=== PATIENT | female | born 1940 | race African-American/Black ===

== ENCOUNTER 2021-07-02 10:20 | Inpatient (IN) | payer BC, MEDICAID ==
[~2021-07-02] VITALS: Ht 165.1 cm; Wt 69.1 kg
[2021-07-02 11:19] LABS: BASOPHILS % 1.2 % (0.0-2.0); EOSINOPHILS % 6.4 % (0.0-5.0); HEMATOCRIT. 46.8 % (36.0-48.0); HEMOGLOBIN. 15.3 g/dL (12.0-16.0); LYMPHOCYTES % 16.2 % (20.0-50.0); MEAN CORPUSCULAR HEMOGLOBIN 29.3 pg (28.0-32.0); MEAN CORPUSCULAR VOLUME 89.6 fL (81.0-99.0); MEAN PLATELET VOLUME 7.4 fl (7.4-10.4); MONOCYTES % 6.9 % (2.0-8.0); NEUTROPHILS % 69.3 % (40.0-76.0); PLATELET 236 x1000/uL (130-400); RED BLOOD CELL COUNT 5.22 mill/uL (4.2-5.4); RED CELL DISTRIBUTION WIDTH 14.7 % (11.6-14.6)
[2021-07-02 11:26] LABS: CHLORIDE 102 mEq/L (98-107)
[2021-07-03] MEDS ORDERED: ACETAMINOPHEN 325MG TABLET PO PRN (09:45)
[2021-07-03] MEDS ORDERED: IPRATROPIUM BROMIDE (0.02%) 0.5MG/2.5ML NEB HHN PRN (09:45)
[2021-07-03] MEDS ORDERED: ONDANSETRON HCL 4MG/2ML INJ IV PRN (09:45)
[2021-07-03] MEDS: AMLODIPINE 5MG TABLET PO SCH (10:55)
[2021-07-03 16:00] VITALS: BP 128/63
[2021-07-03 17:45] VITALS: BP 131/84
[2021-07-03 20:00] VITALS: BP 139/64
[2021-07-03 20:04] VITALS: BP 144/57
[2021-07-03 20:06] VITALS: BP 152/54
[2021-07-03 20:42] LABS: CLARITY URINE TURBID (CLEAR); COLOR URINE YELLOW (YELLOW); KETONES URINE 1+ (NEGATIVE); LEUKOCYTE ESTERASE URINE 2+ (NEGATIVE); NITRITE URINE NEGATIVE (NEGATIVE); OCCULT BLOOD URINE 1+ (NEGATIVE); PROTEIN URINE 1+ (NEGATIVE); SPECIFIC GRAVITY URINE 1.025 (1.005-1.030)
[2021-07-03 21:17] LABS: *AMPHETAMINES SCREEN URINE NEGATIVE (NEGATIVE); *BARBITURATES SCREEN URINE NEGATIVE (NEGATIVE); *BENZODIAZEPINES SCREEN URINE NEGATIVE (NEGATIVE); METHADONE URINE SCREEN NEGATIVE (NEGATIVE); OPIATES URINE SCREEN NEGATIVE (NEGATIVE)
[2021-07-03 21:18] LABS: CANNABINOID URINE SCREEN NEGATIVE (NEGATIVE); PHENCYCLIDINE URINE SCREEN NEGATIVE (NEGATIVE)
[2021-07-03 21:19] LABS: *COCAINE SCREEN URINE NEGATIVE (NEGATIVE)
[2021-07-04 00:28] VITALS: BP 116/49
[2021-07-04 04:00] VITALS: BP 124/56
[2021-07-04 06:36] LABS: BASOPHILS % 0.9 % (0.0-2.0); EOSINOPHILS % 2.7 % (0.0-5.0); HEMOGLOBIN. 14.3 g/dL (12.0-16.0); LYMPHOCYTES % 13.4 % (20.0-50.0); MEAN CORPUSCULAR HEMOGLOBIN 29.5 pg (28.0-32.0); MEAN PLATELET VOLUME 7.5 fl (7.4-10.4); MONOCYTES % 7.3 % (2.0-8.0); NEUTROPHILS % 75.7 % (40.0-76.0); PLATELET 227 x1000/uL (130-400); RED BLOOD CELL COUNT 4.84 mill/uL (4.2-5.4)
[2021-07-04 06:42] LABS: CHLORIDE 100 mEq/L (98-107)
[2021-07-04 06:53] LABS: LDL CHOLESTEROL 123 mg/dL (5-100); TOTAL IRON BINDING CAPACITY 227 ug/dL (250-450)
[2021-07-04 06:55] LABS: HDL CHOLESTEROL 67 mg/dL (40-59); T4 FREE 0.88 ng/dL (0.76-1.46)
[2021-07-04 08:00] VITALS: BP 120/45
[2021-07-04 08:07] VITALS: BP 124/62
[2021-07-04] MEDS ORDERED: ENOXAPARIN 30MG/0.3ML SYR SUBCUT SCH (09:00)
[2021-07-04] MEDS: AMLODIPINE 5MG TABLET PO SCH (09:22)
[2021-07-04 11:35] VITALS: BP 145/70
[2021-07-04 12:00] VITALS: BP 145/70
[2021-07-04] MEDS ORDERED: ATORVASTATIN CALCIUM 20MG TABLET PO SCH (21:00)
== END 2021-07-04 13:15 | disposition home or self-care (01) | DRG 308 ==
LOC: ER 10:20 → EDBEDREQ 14:23 → EDBEDREQTM 14:23 → MICUSO 21:21 → 6WST 07-03 13:51
PROVIDERS: ADMIT Internal Medicine Pulmonary Disease; ATTEND Internal Medicine Pulmonary Disease
DX: I49.3 Ventricular premature depolarization (principal); J96.20 Acute and chronic respiratory failure, unspecified whether with hypoxia or hypercapnia; I10 Essential (primary) hypertension; E78.5 Hyperlipidemia, unspecified; J44.9 Chronic obstructive pulmonary disease, unspecified; Z85.118 Personal history of other malignant neoplasm of bronchus and lung; Z86.73 Personal history of transient ischemic attack (TIA), and cerebral infarction without residual deficits; Z87.891 Personal history of nicotine dependence; Z90.710 Acquired absence of both cervix and uterus; Z99.81 Dependence on supplemental oxygen; Z88.0 Allergy status to penicillin
CPT/HCPCS: 36415; 71045; 80048; 80053; 80061; 80305; 81003; 83540; 83550; 83735; 83880; 84439; 84443; 84481; 84484; 85025; 87077; 87186; 93005; 93306; 99285; J1650

== ENCOUNTER 2021-07-09 20:38 | Inpatient (IN) | payer BC, MEDICAID, OTHER ==
[~2021-07-09] VITALS: Ht 154.9 cm; Wt 65.8 kg
[2021-07-09] MEDS ORDERED: METHYLPREDNISOLONE SOD SUCC 125 MG/2 ML VIAL IV STA (21:02)
[2021-07-09] MEDS ORDERED: IPRATROPIUM BROMIDE (0.02%) 0.5MG/2.5ML NEB HHN STA (21:02)
[2021-07-09] MEDS: ALBUTEROL (0.083%) 2.5MG/3ML NEB HHN SCH ×3 (21:20→22:20)
[2021-07-09 21:54] LABS: BASOPHILS % 1.1 % (0.0-2.0); EOSINOPHILS % 5.6 % (0.0-5.0); HEMATOCRIT. 41.8 % (36.0-48.0); HEMOGLOBIN. 13.9 g/dL (12.0-16.0); LYMPHOCYTES % 22.5 % (20.0-50.0); MEAN CORPUSCULAR HEMOGLOBIN 29.8 pg (28.0-32.0); MEAN CORPUSCULAR VOLUME 89.7 fL (81.0-99.0); MEAN PLATELET VOLUME 7.8 fl (7.4-10.4); MONOCYTES % 7.4 % (2.0-8.0); NEUTROPHILS % 63.4 % (40.0-76.0); PLATELET 229 x1000/uL (130-400); RED BLOOD CELL COUNT 4.66 mill/uL (4.2-5.4)
[2021-07-09 22:03] LABS: CHLORIDE 100 mEq/L (98-107)
[2021-07-10] MEDS ORDERED: ACETAMINOPHEN 650MG/20.3ML UDC GT PRN (01:15)
[2021-07-10] MEDS ORDERED: DOCUSATE SODIUM 100MG CAPSULE PO PRN (01:15)
[2021-07-10] MEDS ORDERED: IPRATROPIUM/ALBUTEROL 0.5-3(2.5)MG/3ML NEB HHN PRN (01:15)
[2021-07-10] MEDS ORDERED: MAGNESIUM/ALUMINUM HYDROXIDE/SIMETHICONE 30ML UDC PO PRN (01:15)
[2021-07-10] MEDS ORDERED: LEVOFLOXACIN 500MG PREMIX 100 ML IV SCH (01:30)
[2021-07-10] MEDS: PREDNISONE 20MG TABLET PO SCH ×2 (01:35→10:01)
[2021-07-10 05:12] LABS: HEMOGLOBIN. 13.7 g/dL (12.0-16.0); MEAN CORPUSCULAR VOLUME 89.4 fL (81.0-99.0); MEAN PLATELET VOLUME 8.1 fl (7.4-10.4); PLATELET 214 x1000/uL (130-400); RED BLOOD CELL COUNT 4.58 mill/uL (4.2-5.4); RED CELL DISTRIBUTION WIDTH 14.5 % (11.6-14.6)
[2021-07-10 05:17] LABS: CHLORIDE 99 mEq/L (98-107)
[2021-07-10] MEDS ORDERED: FAMOTIDINE 20MG TABLET PO SCH (09:00)
[2021-07-10] MEDS ORDERED: ASPIRIN/DIPYRIDAMOLE 25MG/200MG CAPSULE SA PO SCH (09:00)
[2021-07-10] MEDS: ENOXAPARIN 40MG/0.4ML SYR SUBCUT SCH (10:01)
[2021-07-10 13:22] LABS: PLATELET ESTIMATE NORMAL
[2021-07-10 20:00] VITALS: BP 170/83
[2021-07-10] MEDS: ASPIRIN/DIPYRIDAMOLE 25MG/200MG CAPSULE SA PO SCH (20:42)
[2021-07-10] MEDS: AMLODIPINE 10MG TABLET PO SCH (20:42)
[2021-07-10] MEDS ORDERED: AMLO5TAB88 PO (21:11)
[2021-07-10] MEDS ORDERED: LEVOFLOXACIN 250MG PREMIX 50 ML IV SCH (23:30)
[2021-07-11] VITALS (7 sets, daily range): BP systolic 103–145; BP diastolic 60–70
[2021-07-11] MEDS ORDERED: LEVOFLOXACIN 500MG PREMIX 100 ML IV SCH (01:00)
[2021-07-11] MEDS ORDERED: LIDOCAINE HCL/PF 1% 2ML VIAL ONE (07:00)
[2021-07-11 08:01] LABS: BG BASE EXCESS 5.2 mmol/L (-2.0-2.0); BG CARBOXYHEMOGLOBIN 0.5 % (0.5-1.5); BG DEOXYHEMOGLOBIN 1.8 % (0.0-5.0); BG HCO3 ACT 33.3 mmol/L (22.0-26.0); BG METHEMOGLOBIN 0.4 % (0.0-1.5); BG OXYGEN SATURATION 98.2 % (92.0-98.5); BG OXYHEMOGLOBIN 97.3 % (94.0-97.0); BG PCO2 63.5 mmHg (35.0-45.0); BG PH 7.337 (7.350-7.450); BG PO2 109.1 mmHg (75.0-100.0); BG SAMPLE SITE RIGHT BRACHIAL; BG TOTAL HEMOGLOBIN 15.3 g/dL (12.0-18.0); BG VENT MODE NASAL CANNULA
[2021-07-11 08:29] LABS: CHLORIDE 101 mEq/L (98-107)
[2021-07-11] MEDS: AMLODIPINE 10MG TABLET PO SCH (09:13)
[2021-07-11] MEDS: ENOXAPARIN 40MG/0.4ML SYR SUBCUT SCH (09:14)
[2021-07-11] MEDS: PREDNISONE 20MG TABLET PO SCH (09:14)
[2021-07-11] MEDS: ASPIRIN/DIPYRIDAMOLE 25MG/200MG CAPSULE SA PO SCH ×2 (09:14→20:44)
[2021-07-11] MEDS: FAMOTIDINE 20MG TABLET PO SCH (09:14)
[2021-07-11] MEDS: IPRATROPIUM BROMIDE (0.02%) 0.5MG/2.5ML NEB HHN SCH ×2 (15:04→19:55)
[2021-07-11] MEDS: METHYLPREDNISOLONE SOD SUCC 40 MG/ML VIAL IV SCH ×2 (15:45→21:30)
[2021-07-11] MEDS: ATORVASTATIN CALCIUM 10MG TABLET PO SCH (20:44)
[2021-07-12] VITALS: BP_SYST 108; BP_SYST 134; BP_DIAS 51; BP_DIAS 80
[2021-07-12] MEDS: IPRATROPIUM BROMIDE (0.02%) 0.5MG/2.5ML NEB HHN SCH ×8 (00:58→16:40)
[2021-07-12 04:00] VITALS: BP 107/71
[2021-07-12] MEDS: METHYLPREDNISOLONE SOD SUCC 40 MG/ML VIAL IV SCH ×3 (06:57→21:27)
[2021-07-12 08:00] VITALS: BP 109/66
[2021-07-12] MEDS: AMLODIPINE 10MG TABLET PO SCH (08:25)
[2021-07-12] MEDS: FAMOTIDINE 20MG TABLET PO SCH (08:26)
[2021-07-12] MEDS: ENOXAPARIN 40MG/0.4ML SYR SUBCUT SCH (08:26)
[2021-07-12] MEDS: ASPIRIN/DIPYRIDAMOLE 25MG/200MG CAPSULE SA PO SCH ×2 (08:26→21:26)
[2021-07-12] MEDS: PREDNISONE 20MG TABLET PO SCH (08:26)
[2021-07-12] MEDS: ASPIRIN 81MG TABLET PO SCH (08:26)
[2021-07-12] MEDS ORDERED: P20 PO (09:20)
[2021-07-12 10:18] LABS: HEMATOCRIT. 46.3 % (36.0-48.0); HEMOGLOBIN. 15.4 g/dL (12.0-16.0); MEAN CORPUSCULAR HEMOGLOBIN 29.9 pg (28.0-32.0); MEAN CORPUSCULAR VOLUME 89.6 fL (81.0-99.0); MEAN PLATELET VOLUME 8.2 fl (7.4-10.4); PLATELET 336 x1000/uL (130-400); RED BLOOD CELL COUNT 5.16 mill/uL (4.2-5.4)
[2021-07-12 10:21] LABS: CHLORIDE 95 mEq/L (98-107)
[2021-07-12 11:50] LABS: PLATELET ESTIMATE NORMAL
[2021-07-12 12:02] VITALS: BP 119/54
[2021-07-12] MEDS: VERAPAMIL HCL 40MG TABLET PO SCH ×2 (13:24→21:27)
[2021-07-12 15:04] LABS: BG BASE EXCESS 6.4 mmol/L (-2.0-2.0); BG CARBOXYHEMOGLOBIN 0.6 % (0.5-1.5); BG DEOXYHEMOGLOBIN 16.5 % (0.0-5.0); BG FRACTION INSPIRED OXYGEN 21; BG HCO3 ACT 30.7 mmol/L (22.0-26.0); BG METHEMOGLOBIN 0.3 % (0.0-1.5); BG OXYGEN SATURATION 83.4 % (92.0-98.5); BG OXYHEMOGLOBIN 82.6 % (94.0-97.0); BG PCO2 42.4 mmHg (35.0-45.0); BG PH 7.478 (7.350-7.450); BG PO2 44.1 mmHg (75.0-100.0); BG SAMPLE SITE RIGHT BRACHIAL; BG VENT MODE ROOM AIR
[2021-07-12 16:05] VITALS: BP 156/81
[2021-07-12 20:00] VITALS: BP 117/79
[2021-07-12] MEDS: ATORVASTATIN CALCIUM 10MG TABLET PO SCH (21:26)
[2021-07-13] VITALS: BP 128/85
[2021-07-13 04:00] VITALS: BP 131/81
[2021-07-13] MEDS: METHYLPREDNISOLONE SOD SUCC 40 MG/ML VIAL IV SCH ×3 (05:35→22:28)
[2021-07-13] MEDS: VERAPAMIL HCL 40MG TABLET PO SCH ×3 (05:35→22:28)
[2021-07-13 06:00] LABS: HEMATOCRIT. 46.6 % (36.0-48.0); HEMOGLOBIN. 15.5 g/dL (12.0-16.0); MEAN CORPUSCULAR HEMOGLOBIN 29.6 pg (28.0-32.0); MEAN PLATELET VOLUME 8.6 fl (7.4-10.4); PLATELET 293 x1000/uL (130-400); RED BLOOD CELL COUNT 5.24 mill/uL (4.2-5.4); RED CELL DISTRIBUTION WIDTH 14.3 % (11.6-14.6)
[2021-07-13 06:01] LABS: CHLORIDE 97 mEq/L (98-107)
[2021-07-13 08:00] VITALS: BP 135/86
[2021-07-13] MEDS: ASPIRIN 81MG TABLET PO SCH (09:12)
[2021-07-13] MEDS: FAMOTIDINE 20MG TABLET PO SCH (09:12)
[2021-07-13] MEDS: ASPIRIN/DIPYRIDAMOLE 25MG/200MG CAPSULE SA PO SCH ×2 (09:12→22:28)
[2021-07-13] MEDS: ENOXAPARIN 40MG/0.4ML SYR SUBCUT SCH (09:14)
[2021-07-13 11:06] LABS: PLATELET ESTIMATE NORMAL
[2021-07-13 12:00] VITALS: BP 127/79
[2021-07-13] MEDS ORDERED: VER40 PO (12:01)
[2021-07-13 16:00] VITALS: BP 109/74
[2021-07-13 20:00] VITALS: BP 130/87
[2021-07-13] MEDS: ATORVASTATIN CALCIUM 10MG TABLET PO SCH (22:28)
[2021-07-14] VITALS: BP 132/78
[2021-07-14 04:00] VITALS: BP 153/75
[2021-07-14] MEDS: VERAPAMIL HCL 40MG TABLET PO SCH ×2 (06:42→13:22)
[2021-07-14] MEDS: METHYLPREDNISOLONE SOD SUCC 40 MG/ML VIAL IV SCH ×2 (06:42→13:23)
[2021-07-14] MEDS: IPRATROPIUM BROMIDE (0.02%) 0.5MG/2.5ML NEB HHN SCH ×3 (07:48→16:49)
[2021-07-14] MEDS: ENOXAPARIN 40MG/0.4ML SYR SUBCUT SCH (08:23)
[2021-07-14] MEDS: ASPIRIN/DIPYRIDAMOLE 25MG/200MG CAPSULE SA PO SCH (08:24)
[2021-07-14] MEDS: ASPIRIN 81MG TABLET PO SCH (08:24)
[2021-07-14] MEDS: FAMOTIDINE 20MG TABLET PO SCH (08:24)
[2021-07-14 17:14] LABS: BG BASE EXCESS 5.5 mmol/L (-2.0-2.0); BG CARBOXYHEMOGLOBIN 0.6 % (0.5-1.5); BG DEOXYHEMOGLOBIN 7.5 % (0.0-5.0); BG HCO3 ACT 30.9 mmol/L (22.0-26.0); BG METHEMOGLOBIN 0.4 % (0.0-1.5); BG OXYGEN SATURATION 92.4 % (92.0-98.5); BG OXYHEMOGLOBIN 91.5 % (94.0-97.0); BG PCO2 47.2 mmHg (35.0-45.0); BG PH 7.434 (7.350-7.450); BG PO2 62.3 mmHg (75.0-100.0); BG SAMPLE SITE RIGHT BRACHIAL; BG TOTAL HEMOGLOBIN 16.4 g/dL (12.0-18.0); BG VENT MODE ROOM AIR
[2021-07-14 18:50] VITALS: BP 129/52
== END 2021-07-14 19:45 | disposition home or self-care (01) | DRG 189 ==
LOC: ER 21:19 → MICUSO 07-10 00:54 → EDBEDREQTM 07-10 00:59 → EDBEDREQ 07-10 00:59 → 6WST 07-10 16:36
PROVIDERS: ADMIT Internal Medicine Pulmonary Disease; ATTEND Internal Medicine Pulmonary Disease
DX: J96.21 Acute and chronic respiratory failure with hypoxia (principal); J44.1 Chronic obstructive pulmonary disease with (acute) exacerbation; I47.2 Ventricular tachycardia; E44.1 Mild protein-calorie malnutrition; I10 Essential (primary) hypertension; Z20.822 Contact with and (suspected) exposure to COVID-19; R00.1 Bradycardia, unspecified; E78.5 Hyperlipidemia, unspecified; Z85.118 Personal history of other malignant neoplasm of bronchus and lung; Z90.710 Acquired absence of both cervix and uterus; Z86.73 Personal history of transient ischemic attack (TIA), and cerebral infarction without residual deficits; Z99.81 Dependence on supplemental oxygen; Z88.0 Allergy status to penicillin; Z87.891 Personal history of nicotine dependence; Z68.27 Body mass index [BMI] 27.0-27.9, adult
CPT/HCPCS: 36415; 36600; 71045; 80048; 80053; 82375; 82805; 83036; 83735; 83880; 84443; 84484; 85025; 87426; 93005; 94640; 94644; 99285; A6261; C1893; J1650; J1956; J2920; J2930; J3490; J7512

== ENCOUNTER 2022-08-27 08:53 | Inpatient (IN) | payer BC, MEDICAID ==
[~2022-08-27] VITALS: Ht 152.4 cm; Wt 63.2 kg
[~2022-08-27 08:53] MED LIST: AMLO5TAB88 PO; P20 PO; VER40 PO
[2022-08-27] MEDS ORDERED: IPRATROPIUM BROMIDE (0.02%) 0.5MG/2.5ML NEB HHN STA (09:04)
[2022-08-27] MEDS ORDERED: MAGNESIUM 2 G PREMIX 50 ML IV STA (09:04)
[2022-08-27] MEDS ORDERED: METHYLPREDNISOLONE SOD SUCC 125 MG/2 ML VIAL IV STA (09:04)
[2022-08-27] MEDS ORDERED: ALBUTEROL (0.083%) 2.5MG/3ML NEB HHN STA (09:04)
[2022-08-27 09:20] LABS: BASOPHILS % 0.1 % (0.0-2.0); EOSINOPHILS % 0.2 % (0.0-5.0); HEMATOCRIT. 41.3 % (36.0-48.0); HEMOGLOBIN. 13.5 g/dL (12.0-16.0); LYMPHOCYTES % 9.8 % (20.0-50.0); MEAN CORPUSCULAR HEMOGLOBIN 29.1 pg (28.0-32.0); MEAN CORPUSCULAR VOLUME 89.2 fL (81.0-99.0); MONOCYTES % 8.8 % (2.0-8.0); NEUTROPHILS % 81.1 % (40.0-76.0); PLATELET 201 x1000/uL (130-400); RED BLOOD CELL COUNT 4.63 mill/uL (4.2-5.4)
[2022-08-27 09:30] LABS: INR 1.2; PROTHROMBIN TIME 12.4 sec (9.6-11.0)
[2022-08-27 09:41] LABS: CHLORIDE 98 mEq/L (98-107)
[2022-08-27 09:44] LABS: BG BASE EXCESS 5.1 mmol/L (-2.0-2.0); BG CARBOXYHEMOGLOBIN 1.6 % (0.5-1.5); BG DEOXYHEMOGLOBIN 4.1 % (0.0-5.0); BG FRACTION INSPIRED OXYGEN 36; BG HCO3 ACT 33.4 mmol/L (22.0-26.0); BG METHEMOGLOBIN 0.3 % (0.0-1.5); BG OXYGEN SATURATION 95.8 % (92.0-98.5); BG PCO2 67.1 mmHg (35.0-45.0); BG PH 7.315 (7.350-7.450); BG PO2 78.3 mmHg (75.0-100.0); BG SAMPLE SITE RIGHT BRACHIAL; BG TOTAL HEMOGLOBIN 13.8 g/dL (12.0-18.0); BG VENT MODE NASAL CANNULA
[2022-08-27] MEDS ORDERED: PIPERACILLIN/TAZ 3.375G PREMIX 50 ML IV ONE (10:45)
[2022-08-27] MEDS ORDERED: VANCOMYCIN 1G PREMIX 200 ML IV ONE (10:45)
[2022-08-27] MEDS ORDERED: ENOXAPARIN 60MG/0.6ML SYR SUBCUT ONE (11:30)
[2022-08-27] MEDS ORDERED: ACETAMINOPHEN 325MG TABLET PO PRN (12:30)
[2022-08-27] MEDS ORDERED: LEVOFLOXACIN 500MG PREMIX 100 ML IV SCH (12:30)
[2022-08-27] MEDS ORDERED: ONDANSETRON HCL 4MG/2ML INJ IV PRN (12:30)
[2022-08-27 13:06] LABS: BG BASE EXCESS 4.7 mmol/L (-2.0-2.0); BG CARBOXYHEMOGLOBIN 1.2 % (0.5-1.5); BG DEOXYHEMOGLOBIN 4.3 % (0.0-5.0); BG FRACTION INSPIRED OXYGEN 40; BG HCO3 ACT 32.8 mmol/L (22.0-26.0); BG METHEMOGLOBIN 0.5 % (0.0-1.5); BG OXYGEN SATURATION 95.6 % (92.0-98.5); BG PH 7.321 (7.350-7.450); BG PO2 78.6 mmHg (75.0-100.0); BG SAMPLE SITE LEFT RADIAL; BG VENT MODE MASK - BIPAP
[2022-08-27] MEDS: METHYLPREDNISOLONE SOD SUCC 40 MG/ML VIAL IV SCH ×2 (13:27→21:36)
[2022-08-27] MEDS ORDERED: DEXTROSE 50% WATER 50ML SYRINGE IV PRN (15:45)
[2022-08-27 15:48] VITALS: BP 111/67
[2022-08-27 15:50] VITALS: BP 111/67
[2022-08-27] MEDS: BLOOD SUGAR DIAGNOSTIC STRIP TEST SCH ×2 (16:55→21:38)
[2022-08-27 17:00] VITALS: BP 86/48
[2022-08-27] MEDS: INSULIN LISPRO 100 UNITS/ML SUBCUT SCH ×2 (17:20→21:38)
[2022-08-27 20:00] VITALS: BP 122/78
[2022-08-27] MEDS: FAMOTIDINE 20MG TABLET PO SCH (21:36)
[2022-08-27 22:00] VITALS: BP 111/68
[2022-08-28] VITALS (9 sets, daily range): BP systolic 109–137; BP diastolic 53–96
[2022-08-28] MEDS: IPRATROPIUM/ALBUTEROL 0.5-3(2.5)MG/3ML NEB HHN SCH ×3 (02:00→14:37)
[2022-08-28] MEDS: METHYLPREDNISOLONE SOD SUCC 40 MG/ML VIAL IV SCH ×2 (04:17→13:38)
[2022-08-28 07:15] LABS: HEMATOCRIT. 38.1 % (36.0-48.0); HEMOGLOBIN. 12.8 g/dL (12.0-16.0); MEAN CORPUSCULAR HEMOGLOBIN 29.9 pg (28.0-32.0); MEAN CORPUSCULAR VOLUME 89.2 fL (81.0-99.0); MEAN PLATELET VOLUME 8.4 fl (7.4-10.4); PLATELET 212 x1000/uL (130-400); RED BLOOD CELL COUNT 4.27 mill/uL (4.2-5.4); RED CELL DISTRIBUTION WIDTH 15.3 % (11.6-14.6)
[2022-08-28] MEDS: INSULIN LISPRO 100 UNITS/ML SUBCUT SCH ×2 (07:20→12:20)
[2022-08-28 07:28] LABS: CHLORIDE 98 mEq/L (98-107)
[2022-08-28] MEDS: BLOOD SUGAR DIAGNOSTIC STRIP TEST SCH ×2 (07:28→11:50)
[2022-08-28] MEDS: FAMOTIDINE 20MG TABLET PO SCH (08:06)
[2022-08-28] MEDS ORDERED: ASPIRIN 81MG TABLET PO SCH (09:00)
[2022-08-28 09:29] LABS: PLATELET ESTIMATE NORMAL
[2022-08-28] MEDS ORDERED: P20 PO (12:10)
[2022-08-28 13:24] LABS: CLARITY URINE TURBID (CLEAR); COLOR URINE DARK YELLOW (YELLOW); KETONES URINE NEGATIVE (NEGATIVE); LEUKOCYTE ESTERASE URINE NEGATIVE (NEGATIVE); NITRITE URINE NEGATIVE (NEGATIVE); OCCULT BLOOD URINE NEGATIVE (NEGATIVE); PROTEIN URINE 2+ (NEGATIVE); SPECIFIC GRAVITY URINE 1.035 (1.005-1.030)
== END 2022-08-28 16:45 | disposition home or self-care (01) | DRG 871 ==
LOC: ER 08:53 → EDBEDREQ 09:28 → EDBEDREQTM 10:33 → 3WST 11:19 → EDBEDREQTM 11:23 → EDBEDREQ 11:23 → ENRESERV 13:21
PROVIDERS: ADMIT Internal Medicine Pulmonary Disease; ATTEND Internal Medicine Pulmonary Disease
PROC: 5A09357 Assistance with Respiratory Ventilation, Less than 24 Consecutive Hours, Continuous Positive Airway Pressure (ICD-10-PCS; principal; 2022-08-27)
DX: A41.9 Sepsis, unspecified organism (principal); I21.4 Non-ST elevation (NSTEMI) myocardial infarction; J96.02 Acute respiratory failure with hypercapnia; J44.1 Chronic obstructive pulmonary disease with (acute) exacerbation; E44.0 Moderate protein-calorie malnutrition; I49.3 Ventricular premature depolarization; Z20.822 Contact with and (suspected) exposure to COVID-19; E11.9 Type 2 diabetes mellitus without complications; Z28.310 Unvaccinated for COVID-19; Z88.0 Allergy status to penicillin; Z86.73 Personal history of transient ischemic attack (TIA), and cerebral infarction without residual deficits; Z85.118 Personal history of other malignant neoplasm of bronchus and lung; Z99.81 Dependence on supplemental oxygen; Z68.21 Body mass index [BMI] 21.0-21.9, adult
CPT/HCPCS: 36415; 36600; 71045; 80048; 80053; 81003; 82375; 82805; 82962; 83605; 83880; 84145; 84484; 85025; 87426; 87804; 93005; 93306; 94640; 94660; 99285; C9803; J1650; J1815; J1956; J2543; J2920; J2930; J3370; J3475